=== PATIENT | female | born 1995 | race Caucasian/White ===

== ENCOUNTER 2024-10-28 11:34 | Inpatient (IN) ==
[2024-10-28 12:27] LABS: Hematocrit (blood only) 39.0 % (37.0-47.0); Hemoglobin 12.7 g/dl (12.0-16.0); Immature Granulocytes # (auto) 0.06 K/uL (0.01-0.20); Immature Granulocytes % (auto) 0.4 %; Mean Corpuscular Hemoglobin 29.1 pg (25.0-34.0); Mean Corpuscular Volume 89.4 fL (80.0-100.0); Platelet Count 415 K/uL (130-400); RDW Standard Deviation 43.3 fL (36.4-46.3); Red Blood Count 4.36 M/uL (4.20-5.40); White Blood Count 16.29 K/ul (4.8-10.8)
[2024-10-28 12:45] LABS: Alanine Aminotransferase 16 U/L (7-52); Albumin Globulin Ratio 1.2 (0.9-2); Alkaline Phosphatase 56 U/L (34-104); Anion Gap 4 (3-11); Bilirubin,Total 0.5 mg/dl (0.2-1.0); Blood Urea Nitrogen 10 mg/dl (6-23); Calcium 9.4 mg/dl (8.6-10.3); Carbon Dioxide 26 mmol/L (21-32); Chloride 105 mmol/L (98-107); Globulin 3.5 gm/dl (2.5-4.0); Glucose 105 mg/dl (70-99(Fasting)); Potassium 4.2 mmol/L (3.5-5.1); Sodium 135 mmol/L (136-145); Total Protein 7.7 gm/dl (6.0-8.3)
[2024-10-28 12:52] LABS: Pregnancy Test, Serum Negative (Negative)
[2024-10-28 12:55] LABS: Acetaminophen < 3 ug/ml (10-30); Salicylate < 3.0 mg/dl (3.0-30)
[2024-10-28 13:00] LABS: Thyroid Stimulating Hormone 3.345 uIu/ml (0.300-4.500)
[2024-10-28 14:00] LABS: Appearance Urine Clear (Clear); Bacteria Urine Automated None Seen (None Seen); Cast Urine Automated 0-2 /lpf (0-2); Glucose Urine UA Negative (Negative)
--- NOTE | 2024-10-28 14:15 | Emergency Department Note ---
Impression & Plan Depression, Suicidal ideation ED Provider Note ED Provider Note NAME: LOUISA HOYOS AGE:29 SEX: Female : 1995 ARRIVES VIA: EMS INFORMANT: Patient ED PROVIDER(s): Radha Grayson DO CHIEF COMPLAINT: Mental health evaluation HPI: This is a 29-year-old female who presents to the emergency department for mental health evaluation. Patient referred here from her psychiatrist office. She states she was meeting with her psychiatrist when they had to leave urgently to see another client and another psychiatrist came in. She states that psychiatrist told her she was malingering and she needed to come to the ER more emergently. She states she does sometimes have seizures when she sees her psychiatrist as well as her therapist. She denies any recent change in her medications. She admits to occasional thoughts of suicide with a plan to overdose. No prior suicide attempts. Denies paranoia or hallucinations. PAST MEDICAL HISTORY:See Below PAST SURGICAL HISTORY:See Below FAMILY HISTORY:See Below SOCIAL HISTORY:See Below HOME MEDICATIONS:See Below ALLERGIES:See Below VITALS:See Below PHYSICAL EXAMINATION: GENERAL: alert, well appearing, well nourished, no distress, non-toxic EYE EXAM: normal conjunctiva, PERRL and EOM's grossly intact OROPHARYNX: no exudate, no erythema, lips, buccal mucosa, and tongue normal and mucous membranes are moist NECK: supple, no nuchal rigidity, no adenopathy, non-tender LUNGS: Clear to auscultation. Normal chest wall mechanics, no w/r/r HEART: no murmurs, S1 normal and S2 normal ABDOMEN: abdomen soft, non-tender, normo-active bowel sounds, no masses, no rebound or guarding. SKIN: no rashes, petechiae, orbruising UPPER EXTREMITIES: upper extremities are grossly normal. FROM, nml pulses b/l. LOWER EXTREMITIES: No pitting edema. FROM, nml pulses b/l. NEURO EXAM: Normal sensorium, cranial nerves II-XII grossly intact, normal speech, no facial droop,nogross weakness of arms, no gross weakness of legs. Gross sensation intact. No ataxia. Vital Signs: reviewed and remarkable Differential Diagnosis: mood disorder, suicidal ideation, anxiety, depression, substance abuse, toxidrome, infection, hypoglycemia, electrolyte abnormalities, ICH as well as others were considered. MEDICAL DECISION MAKING: This is a 21-year-old female who presents to the emergency department with concern for depression, suicidal ideation and plan. Patient does follow with outpatient mental providers. Labs and urine collected and sent per protocol and were reassuring. Patient seen and evaluated by case management and is in agreement with plan for inpatient mental health treatment. She was referred to [facility] who did come and evaluate her at bedside. Patient in agreement with plan for admission here. 201 signed by me. Patient hemodynamically stable throughout. Patient was noted to have mild leukocytosis of unclear etiology. Patient denied any concern illness and had no other focal complaints or concerns. Consultation(s): 1829: Patient seen and evaluated by [facility] for inpatient mental health treatment. 201 signed by me. ER Treatment Provided: See below Diagnostics Interpreted By Me: -Laboratory studies: As stated above and show below. Triage Nursing Note Reviewed Prior/Outside Records Reviewed Past Med/Surg History Problem List (Updated 10/28/24 @ 18:36 by Radha Grayson DO) Suicidal ideation (Acute) Depression (Acute) Medical History Bipolar disorder Seizure HTN (hypertension) Social History Smoking Status: Never smoker Preferred Language: Guinean Feels Safe at Home: Yes Gender Identity: Female Allergies Allergies Allergy/AdvReac Type Severity Reaction Status Date / Time minocycline Allergy Unknown on med list Unverified 09/15/24 16:56 Penicillins Allergy Unknown on med list Unverified 09/15/24 16:56 Home Meds Home Medications Medication Instructions Recorded Confirmed atogepant 30 mg tablet (Qulipta) 30 mg PO HS 09/15/24 10/28/24 buspirone 30 mg tablet 30 mg PO BID 09/15/24 10/28/24 clomipramine 75 mg capsule 200 mg PO HS 09/15/24 10/28/24 dextroamphetamine-amphetamine ER 20 mg PO QAM 09/15/24 10/28/24 20 mg 24hr capsule,extend release ferrous sulfate 325 mg (65 mg 325 mg PO .MON,WED,FRI 09/15/24 10/28/24 iron) tablet gabapentin 600 mg tablet 600 mg PO BID 09/15/24 10/28/24 lithium carbonate 300 mg capsule 300 mg PO BID 09/15/24 10/28/24 magnesium 400 mg PO HS 09/15/24 10/28/24 naltrexone 50 mg tablet 50 mg PO DAILY 09/15/24 10/28/24 ondansetron 4 mg disintegrating 4 mg PO Q8H PRN Nausea 09/15/24 10/28/24 tablet prazosin 2 mg capsule 2 mg PO HS 09/15/24 10/28/24 riboflavin (vitamin B2) 400 mg 400 mg PO DAILY 09/15/24 10/28/24 tablet rimegepant 75 mg disintegrating 75 mg PO UD PRN Headache 09/15/24 10/28/24 tablet (Nurtec ODT) trazodone 50 mg tablet 50 - 100 mg PO HS PRN Sleep 09/15/24 10/28/24 Florinef 0.2 mg PO DAILY 10/28/24 10/28/24 diazepam See Rx Instructions .Route 10/28/24 10/28/24 .COMPLEX PRN Focus meloxicam 7.5 mg PO BID 10/28/24 10/28/24 Results & Data (ED) Vital Signs Vital Signs - 24 hr 10/28/24 11:43 10/28/24 15:43 10/28/24 17:42 Temperature 36.6 C Temperature Source Oral Pulse Rate 107 H Pulse Rate [Finger] 90 90 Respiratory Rate 18 16 16 Respiratory Effort / Characteristics Non-Labored Spontaneous Respiratory Depth Normal Respiratory Pattern Regular Blood Pressure 130/86 Blood Pressure [Left Arm] 112/73 109/75 Blood Pressure Mean 100 Blood Pressure Mean [Left Arm] 86 86 Blood Pressure Position [Left Arm] Semi-fowlers Semi-fowlers Pulse Oximetry 100 100 98 Oxygen Delivery Method Room Air Room Air Room Air Sepsis Recent Fever Within 48 Hours No Sepsis New/Unexplained Change in Mental Status N/A Sepsis Action Taken by Nursing No Action Required Laboratory Data 10/28/24 12:07 10/28/24 12:07 Lab Results 10/28/24 10/28/24 10/28/24 Range/Units 12:07 13:40 Unknown WBC 16.29 H (4.8-10.8) K/ul RBC 4.36 (4.20-5.40) M/uL Hgb 12.7 (12.0-16.0) g/dl Hct 39.0 (37.0-47.0) % MCV 89.4 (80.0-100.0) fL MCH 29.1 (25.0-34.0) pg MCHC 32.6 (32.0-36.0) g/dL RDW Std Deviation 43.3 (36.4-46.3) fL RDW Coeff of Dahlia 13.2 (11.5-14.5) % Plt Count 415 H (130-400) K/uL MPV 8.3 L (9.4-12.4) fL Immature Gran % (Auto) 0.4 % Neut % (Auto) 87.7 % Lymph % (Auto) 6.5 % [place] % (Auto) 4.3 % Eos % (Auto) 0.5 % Baso % (Auto) 0.6 % Neut # (Auto) 14.30 H (1.40-6.50) K/uL Lymph # (Auto) 1.06 L (1.20-3.40) K/uL [place] # (Auto) 0.70 H (0.11-0.59) K/uL Eos # (Auto) 0.08 (0.00-0.50) K/uL Baso # (Auto) 0.09 (0.00-0.20) K/uL Immature Gran # (Auto) 0.06 (0.01-0.20) K/uL Sodium 135 L (136-145) mmol/L Potassium 4.2 (3.5-5.1) mmol/L Chloride 105 (98-107) mmol/L Carbon Dioxide 26 (21-32) mmol/L Anion Gap 4 (3-11) BUN 10 (6-23) mg/dl Creatinine 0.67 (0.6-1.2) mg/dl Est Cr Clr Drug Dosing Not Reportable eGFR 121.26 BUN/Creatinine Ratio 14.9 (10-20) Glucose 105 H (70-99(Fasting)) mg/dl Calcium 9.4 (8.6-10.3) mg/dl Total Bilirubin 0.5 (0.2-1.0) mg/dl AST 17 (13-39) U/L ALT 16 (7-52) U/L Alkaline Phosphatase 56 (34-104) U/L Total Protein 7.7 (6.0-8.3) gm/dl Albumin 4.2 (3.4-5.0) gm/dl Globulin 3.5 (2.5-4.0) gm/dl Albumin/Globulin Ratio 1.2 (0.9-2) TSH 3.345 (0.300-4.500) uIu/ml HCG, Qual Negative (Negative) Urine Color Yellow Urine Appearance Clear (Clear) Urine pH 7.0 (4.5-7.5) Ur Specific [place] 1.012 (1.000-1.030) Urine Protein Negative (Negative) Urine Glucose (UA) Negative (Negative) Urine Ketones Trace H (Negative) Urine Blood Negative (Negative) Urine Nitrite Negative (Negative) Urine Bilirubin Negative (Negative) Urine Urobilinogen Negative (Negative) Ur Leukocyte Esterase Trace H (Negative) Urine WBC (Auto) 6-10 H (0-5) /hpf Urine RBC (Auto) 3-5 H (0-2) /hpf U Hyaline Cast (Auto) 0-2 (0-2) /lpf U Epithel Cells (Auto) 6-10 H (0-2) /hpf Urine Bacteria (Auto) None Seen (None Seen) Urine Comment Salicylates < 3.0 L (3.0-30) mg/dl Urine Opiates Screen Neg (Neg) Ur Methadone, Qual Neg (Neg) Urine Fentanyl Screen Neg (Neg) Acetaminophen < 3 L (10-30) ug/ml Urine Barbiturates Neg (Neg) Ur Phencyclidine (PCP) Neg (Neg) U Amphetamin/Meth Scrn Pos H (Neg) MDMA (Ecstasy) Screen Neg (Neg) U Benzodiazepines Scrn Neg (Neg) [place] 0.2 L (0.6-1.2) mmol/L Ur Cocaine Metabolite Neg (Neg) U Marijuana (THC) Screen Neg (Neg) Ethyl Alcohol mg/dL < 10.0 (<10.0) mg/dl SARS-CoV-2, RNA, NAAT NEGATIVE (NEGATIVE) Administered Medications Discontinued Medications Acetaminophen (Acetaminophen 500 Mg Tab) 1,000 mg PO NOW STA Stop: 10/28/24 14:32 Last Admin: 10/28/24 14:35 Dose: 1,000 mg Documented By: JEAN CARLOS Discharge Plan Visit Data Chief Complaint: Mental Health Evaluation Stated Complaint: [facility] ED Provider: Radha Grayson Discharge Problem: Depression, Suicidal ideation Patient Disposition: Still a Patient Condition: Good Forms Stand Alone Forms: My [facility], Suicide Prevention Resources Prescriptions Prescriptions: No Action Florinef 0.2 mg tablet 0.2 mg PO DAILY diazepam 2 mg tablet See Rx Instructions .ROUTE .COMPLEX PRN (Reason: Focus) Rx Instructions: 2 mg orally as needed ;Can be taken up to twice a day. meloxicam 7.5 mg tablet 7.5 mg PO BID gabapentin 600 mg tablet 600 mg PO BID trazodone 50 mg tablet 50 - 100 mg PO HS PRN (Reason: Sleep) clomipramine 75 mg capsule 200 mg PO HS naltrexone 50 mg tablet 50 mg PO DAILY dextroamphetamine-amphetamine 20 mg capsule,extended release 24hr 20 mg PO QAM lithium carbonate 300 mg capsule 300 mg PO BID buspirone 30 mg tablet 30 mg PO BID ferrous sulfate 325 mg (65 mg iron) Tablet 325 mg PO .MON,WED,FRI ondansetron 4 mg tablet,disintegrating 4 mg PO Q8H PRN (Reason: Nausea) prazosin 2 mg capsule 2 mg PO HS riboflavin (vitamin B2) 400 mg Tablet 400 mg PO DAILY Nurtec ODT 75 mg tablet,disintegrating 75 mg PO UD PRN (Reason: Headache) Rx Instructions: one tab at beginning of a headache, can take up to two days a week Qulipta 30 mg tablet 30 mg PO HS magnesium 400 mg PO HS Referrals Referrals: Michelle Tan PA-C [Primary Care Provider] -
[2024-10-28 14:27] LABS: Amphetamines+Metham, Urine Pos (Neg); MDMA (Ecstacy), Urine Neg (Neg); Marijuana, Urine Neg (Neg)
[2024-10-28] MEDS: ACETAMINOPHEN 500 MG TAB PO STA (14:35)
[2024-10-28] MEDS ORDERED: ALUMINUM/MAGNESIUM SUSP 30 ML UDC PO PRN ×2 (18:46→21:26)
[2024-10-28] MEDS ORDERED: MAGNESIUM HYDROXIDE SUSP 30 ML UDC PO PRN (21:26)
[2024-10-28] MEDS ORDERED: SODIUM CHLORIDE 0.65% NA SOLN 45 ML (OCEAN) PRN (21:26)
[2024-10-28] MEDS ORDERED: BISMUTH SUBSALICYLATE 262 MG CHEW PO PRN (21:26)
[2024-10-29] MEDS ORDERED: ONDANSETRON 4 MG OD TAB PO PRN (10:55)
[2024-10-29] MEDS: FLUDROCORTISONE ACETATE 0.1 MG TAB PO SCH (11:45)
[2024-10-29] MEDS: busPIRone 15 MG TAB PO SCH (11:45)
[2024-10-29] MEDS: NALTREXONE HCL 50 MG TAB PO SCH (11:46)
[2024-10-29] MEDS: LITHIUM CARBONATE 300 MG TAB PO SCH (11:46)
[2024-10-29] MEDS: GABAPENTIN 600 MG TAB PO SCH (11:46)
[2024-10-29] MEDS: FERROUS SULFATE 325 MG TAB PO SCH (11:46)
--- NOTE | 2024-10-29 14:00 | History & Physical ---
Date of Service October 29, 2024 Impression / Recommendations Impression Patient is currently presenting with symptoms consistent with major depressive disorder, recurrent episode with mixed features. Patient was recently switched from Zoloft to clomipramine to manage her depression. She did not believe clomipramine has been effective and somewhat affects when on Zoloft. Patient has history of chronic SI without intent/plan. Currently this delaying multiple risk factors including hopelessness, poor use of unscheduled support when in crisis, and effective medication management, stressors (returned to work this past Friday). Patient is agreeable to discontinuing imipramine and return to Zoloft to return her depression is previously more stable baseline. Overall I spent a total of 75 minutes for this admission including review of chart records, review of labwork, direct evaluation of the patient, counseling the patient, ordering medication, risk assessment, discussion with the psychiatric liason RN and documentation in the electronic health record. (1) Major depressive disorder, recurrent episode with mixed features: (2) Suicidal ideation: Plan The patient was admitted to the [facility] ([facility]) on q15 min checks (behavioral with suicide precautions) for safety. The patient will participate in group, recreational, and milieu therapies and will be offered additional individual and family sessions as clinically appropriate. Discontinue Clomipramine Restart Zoloft at 50 mg PO QAM Continue remaining home medications (excluding stimulant) Suicide Risk Level Suicide Risk Level Comments: Moderate (q15 min suicide checks) (panic attacks with depression, hopelessness and SI and isolative behavior/does not seek unscheduled support) Risk Factors Assessment Do You Have Access To A Gun?: Yes (mother owns firearms but they are locked, patient does not have the bland) Protective Factors Assessment Employed: Yes Psychiatric History Identifying Data LOUISA HOYOS is a 29 -year-old single female, whos employed, living with her mother, has no children, and has never been . She has a past psychiatric history of depression and anxiety with no prior psychiatric commitments and no history of suicide attempts. Family history of depression and PTSD in her father and family history of suicide attempt by a paternal cousin. Chief Complaint depression and anxiety History of Present Illness Per the patient she presented to the ED after endorsing suicidal ideations. During a scheduled appointment with her psychiatrist. "But I didnt have any intent," she stated. After endorsing SI, the patient was asked to sign a list of conditions in order to continue seeing her psychiatrist. The patient started having a panic attack with racing thoughts of, Why does everyone always give up on me. The patient feels her psychiatrist overreacted sending her to the emergency department. Upon evaluation patient presented as calm and cooperative with a affect and limited range, and soft, muffled and often unintelligible speech. Patient reported a long history of undisclosed anxiety beginning in middle school, along with depression, feelings of worthlessness on and off throughout [her] life," and chronic suicidal ideations experienced throughout middle school. She did not seek support until the age of 20 when her depressive and anxious symptoms hindered her academic performance. Patient reported a pattern of only disclosing distress during routine encounters noting that she has never sought unscheduled support wanted crisis. The patient reports experiencing worsening depression and anxiety over the past year after being let go from her job in August of 2023 and then subsequently losing her long-time therapist. HR sent an email saying I was too burdensome to employ, she stated. Prior to this, the patient believes her mental health was improving she was performing well and worked with, in therapy and responded well to medication. Following that stressor leading the patient experienced worsening depression associated with insomnia, poor appetite, isolated behavior, poor concentration, low energy, excessive guilt, worth prediabetes lessens, hopelessness (more p rominent in the past year), and chronic suicidal ideations. Her anxiety has been associated with racing thoughts, restlessness, negative thought patterns and panic attacks (a couple times a weeksometimes its just out of nowhere lasting about 10-30 minutes). Regarding triggers she reported experiencing general anxiety throughout the day stating, I have a lot of anxiety with leaving my home. Patient reports chronic suicidal ideation stating, "the thoughts are always kind of there in the back of my head. She reports never having had a "set plan" but stated "I know ways to do it." Patient admits to history of developing intent noting that her last instance of suicidal intent occurred February 2024. The patient also reported PTSD symptoms regarding physical and emotional trauma, that include intrusive thoughts, nightmares, flashbacks, and avoiding being alone with men. Patient reported having no current/prior history of marin including insomnia with preserved energy, grandiosity, hyperactivity, impulsivity (hypersexuality, increased spending), and pressured speech. She also reported no history of psychosis denying current or prior auditory/visual hallucinations, ideas of reference and paranoia. Of note, patient reports that Zoloft was previously effective in managing her depression but recently discontinued and started on clomipramine. Patient does not feel clomipramine has been effective. Patient also reports naltrexone to be effective in subduing urges to self-harm. Past Psychiatric History Current Psychiatric Diagnosis: Patient reported she is diagnosd with Anxiety, Depression, and PTSD Do You Have Access To A Gun?: Yes (mother owns firearms but they are locked, patient does not have the bland) History of Previous Suicide Attempt: No Allergies Allergy/AdvReac Type Severity Reaction Status Date / Time minocycline Allergy Unknown on med list Unverified 09/15/24 16:56 Penicillins Allergy Unknown on med list Unverified 09/15/24 16:56 lamotrigine [From Lamictal] AdvReac Intermediate Rash Unverified 10/29/24 00:08 Home Medications Medication Instructions Recorded Confirmed Type atogepant 30 mg tablet (Qulipta) 30 mg PO HS 09/15/24 10/28/24 History buspirone 30 mg tablet 30 mg PO BID 09/15/24 10/28/24 History clomipramine 75 mg capsule 200 mg PO HS 09/15/24 10/29/24 History dextroamphetamine-amphetamine ER 20 mg PO QAM 09/15/24 10/28/24 History 20 mg 24hr capsule,extend release ferrous sulfate 325 mg (65 mg 325 mg PO .MON,WED,Fri09/15/24 10/28/24 History iron) tablet gabapentin 600 mg tablet 600 mg PO BID 09/15/24 10/28/24 History lithium carbonate 300 mg capsule 300 mg PO BID 09/15/24 10/28/24 History magnesium 400 mg PO HS 09/15/24 10/28/24 History naltrexone 50 mg tablet 50 mg PO DAILY 09/15/24 10/28/24 History ondansetron 4 mg disintegrating 4 mg PO Q8H PRN Nausea 09/15/24 10/28/24 History tablet riboflavin (vitamin B2) 400 mg 400 mg PO DAILY 09/15/24 10/28/24 History tablet rimegepant 75 mg disintegrating 75 mg PO UD PRN Headache 09/15/24 10/28/24 History tablet (Nurtec ODT) trazodone 50 mg tablet 50 - 100 mg PO HS PRN Sleep 09/15/24 10/28/24 History Florinef 0.2 mg PO DAILY 10/28/24 10/28/24 History diazepam See Rx Instructions .Route 10/28/24 10/28/24 History .COMPLEX PRN Focus meloxicam 7.5 mg PO BID 10/28/24 10/28/24 History Family History Family History of: Depression and Suicide Completion Family Mental Health History Comment: Depression and PTSD - father Father's cousin completed suicide Alcohol History Hx of Alcohol Use Over the Past 12 Months: No (1 drink approx. 4-5x per year) AUDIT Total Score: 1 Smoking Use Have You Smoked or Used Tobacco Products in the Last 30 Days: No Smoking Status: Never smoker Substance History Hx of Prescription Med Misuse Over the Past 12 Months: No Hx of Over the Counter Med Misuse Over the Past 12 Months: No Hx of Inhalent Misuse Over the Past 12 Months: No Hx of Organic Substance Use Over the Past 12 Months: No Hx of Illegal Substances/Street Drug Use Over Past 12 Months: No Problems as a Result of Past Substance Use: None Identified Personal History Living Arrangements: Home Highest Grade Completed: College Highest Grade Completed Comment: Bachelor's degree in Psychology Marital Status: Single Number Of Children: 0 Beliefs That Will Affect Care: None Patient History Medical History Bipolar disorder Seizure HTN (hypertension) Social History Smoking Status: Never smoker Preferred Language: French Communication Ability: Effective Director Of Fundraising Required: No Beliefs That Will Affect Care: None Feels Safe at Home: Yes Gender Identity: Female Assistive Devices: Glasses Physical Exam Psychiatric: Orientation: oriented x 3 Apperance: appropriately dressed and appropriately groomed Eye Contact: + poor eye contact Motor Behavior: + psychomotor agitation intermittently tapping left foot; fidgeting with hands soft; muffled and frequently unintelligible speech; +latency of speech limited range; fluid Mood: + depressed mood and + anxious mood Thought Process: goal directed thought process Thought Content: + hopelessness, + worthlessness and + self deprecation Suicidal Thoughts: denies suicidal thoughts and denies suicidal plan (reports having no set plan, but being aware of different methods); + reports suicidal intent Homicidal Thoughts: + reports homicidal thoughts, + reports homicidal plan and + reports homicidal intent Hallucinations: no auditory hallucinations and no visual hallucinations Cognition: remote memory grossly intact; + attention not intact immediate recall intact;; delayed recall impaired : recalled 1/3 independently; recalled 1/3 with cue; could not recall 1/3 with cue or mulple choices Insight: + fair insight Judgment: + fair judgement Vital Signs (Past 24 Hours): Last Vital Signs Temp 36.9 C 10/28/24 20:40 Pulse 97 H 10/28/24 20:40 Resp 20 10/28/24 20:40 BP 132/87 10/28/24 20:40 Pulse Ox 99 10/28/24 20:40 O2 Del Method Room Air 10/28/24 20:40 Results & Data ([facility]) Laboratory Results Laboratory Results - last 24 hr 10/28/24 10/28/24 10/28/24 12:07 13:40 Unknown Urine Color Yellow Urine Appearance Clear Urine pH 7.0 Ur Specific [place] 1.012 Urine Protein Negative Urine Glucose (UA) Negative Urine Ketones Trace H Urine Blood Negative Urine Nitrite Negative Urine Bilirubin Negative Urine Urobilinogen Negative Ur Leukocyte Esterase Trace H Urine WBC (Auto) 6-10 H Urine RBC (Auto) 3-5 H U Hyaline Cast (Auto) 0-2 U Epithel Cells (Auto) 6-10 H Urine Bacteria (Auto) None Seen Urine Comment Urine Opiates Screen Neg Ur Methadone, Qual Neg Urine Fentanyl Screen Neg Urine Barbiturates Neg Ur Phencyclidine (PCP) Neg U Amphetamines Confirm Pending U Amphetamin/Meth Scrn Pos H U Methamphetamin Confrm Pending MDMA (Ecstasy) Screen Neg U Benzodiazepines Scrn Neg [place] 0.2 L Ur Cocaine Metabolite Neg U Marijuana (THC) Screen Neg Drug Screen Comment Pending SARS-CoV-2, RNA, NAAT NEGATIVE Current Inpatient Medications Current Inpatient Medications: Current Inpatient Medications Acetaminophen (Acetaminophen 325 Mg Tab) 650 mg PO Q4H PRN PRN Reason: Headache or Minor Fever Stop: 11/27/24 21:25 Al Hydrox/Mg Hydrox/Simethicone (Aluminum/Magnesium Susp 30 Ml Udc) 30 ml PO Q4H PRN PRN Reason: GI Upset Stop: 11/27/24 21:25 Atogepant (Atogepant 30 Mg Tab) 30 mg PO Q24H [facility] Stop: 11/28/24 21:59 Bismuth Subsalicylate (Bismuth Subsalicylate 262 Mg Chew) 2 tab PO Q30M PRN PRN Reason: Loose Stool/Diarrhea Stop: 11/27/24 21:25 Buspirone HCl (Buspirone 15 Mg Tab) 30 mg PO BID EFREN Stop: 11/28/24 10:59 Last Admin: 10/29/24 11:45 Dose: 30 mg Diazepam (Diazepam 2 Mg Tablet) 2 mg PO BID PRN PRN Reason: Anxiety Stop: 11/28/24 10:53 Ferrous Sulfate (Ferrous Sulfate 325 Mg Tab) 325 mg PO [id number] [facility] Stop: 11/28/24 11:14 Last Admin: 10/29/24 11:46 Dose: 325 mg Fludrocortisone Acetate (Fludrocortisone Acetate 0.1 Mg Tab) 0.2 mg PO DAILY [facility] Stop: 11/28/24 10:59 Last Admin: 10/29/24 11:45 Dose: 0.2 mg Gabapentin (Gabapentin 600 Mg Tab) 600 mg PO BID EFREN Stop: 11/28/24 10:59 Last Admin: 10/29/24 11:46 Dose: 600 mg Hydroxyzine HCl (Hydroxyzine Hcl 25 Mg Tab) 50 mg PO HSZ PRN PRN Reason: Insomnia Stop: 11/27/24 21:25 Hydroxyzine HCl (Hydroxyzine Hcl 25 Mg Tab) 25 mg PO Q4H PRN PRN Reason: Anxiety Stop: 11/27/24 21:25 [place] Carbonate ([place] Carbonate 300 Mg Tab) 300 mg PO BID [facility] Stop: 11/28/24 10:59 Last Admin: 10/29/24 11:46 Dose: 300 mg Magnesium Hydroxide (Magnesium Hydroxide Susp 30 Ml Udc) 30 ml PO DAILY PRN PRN Reason: Constipation Stop: 11/27/24 21:25 Magnesium Oxide (Magnesium Oxide 400 Mg Tab) 400 mg PO HS EFREN Stop: 11/28/24 21:59 Meloxicam (Meloxicam 7.5 Mg Tab) 7.5 mg PO BID [facility] Stop: 11/28/24 20:59 Miscellaneous (Order Awaiting Action Clomipramine 75 Mg Capsule) 1 each N/A QS EFREN Stop: 11/28/24 15:59 Miscellaneous (Order Awaiting Action (Riboflavin (Vitamin B2) 400 Mg Tablet) 1 each N/A QS EFREN Stop: 11/28/24 15:59 Naltrexone HCl (Naltrexone Hcl 50 Mg Tab) 50 mg PO DAILY EFREN Stop: 11/28/24 10:59 Last Admin: 10/29/24 11:46 Dose: 50 mg Ondansetron HCl (Ondansetron 4 Mg Od Tab) 4 mg PO Q8H PRN PRN Reason: Nausea Stop: 11/28/24 10:54 Sertraline HCl (Sertraline Hcl 50 Mg Tablet) 50 mg PO QAM EFREN Stop: 11/28/24 13:59 Sodium Chloride (Sodium Chloride 0.65% Na Soln 45 Ml ([place])) 1 - 2 sprays NA PRN PRN PRN Reason: Nasal Dryness/Congestion Stop: 11/27/24 21:25 Trazodone HCl (Trazodone Hcl 50 Mg Tab) 50 - 100 mg PO HS PRN PRN Reason: Sleep Stop: 11/28/24 10:54
[2024-10-29] MEDS: RIMEGEPANT SULFATE 75 MG OD TAB PO PRN (14:09)
[2024-10-29] MEDS: SERTRALINE HCL 50 MG TABLET PO SCH (14:17)
[2024-10-29] MEDS: MELOXICAM 7.5 MG TAB PO SCH (20:44)
[2024-10-29] MEDS: MAGNESIUM OXIDE 400 MG TAB PO SCH (20:44)
[2024-10-29] MEDS: ATOGEPANT 30 MG PO SCH (20:45)
[2024-10-29] MEDS: PRAZOSIN HCL 1 MG CAP PO SCH (21:53)
--- NOTE | 2024-10-30 09:24 | Psychiatric Progress Note ---
Date of Service October 30, 2024 Impression / Recommendations Impression Diagnostically consistent with major depressive disorder recurrent vs persistent depressive disorder as well as cluster B traits vs BPD and social anxiety with history of nonepileptic seizures/functional neurological disorder and likely trauma and other stressor disorder vs PTSD per history. A: Ongoing self-harm, chronic SI but passive and help seeking/help rejecting patterns of behavior. Suspect BPD significantly contributes to mood symptoms and chronic SI and self-harm and could be due to genetics (she rpeorts family with similar BPD symptoms including anger outbursts) vs secondary to past trauma. Also significant social anxiety. Discussed medication treatment options. She consents to increasing Eunice and continuing her other medications including prazosin and sertraline. Reviewed side effects including but not limited to low BP/syncope, GI symptoms, educated on risks of dehydration, renal, thyroid, cardiac, drug interactions (NSAIDs, ACEIs, angiotensin receptor antagonists, risks) with Eunice. Provided psychoeducation about BPD/trauma/cluster B traits and discussed DBT and recommended DBT resources. Also discussed how stress and anxiety can manifest physically via neurological symptoms in functional neurological disorders. MNPR given extreme social anxiety and trauma history Overall, I spent a total of 50 minutes on this case including meeting with the patient, reviewing the chart, nursing report, multidisciplinary team meeting, orders, and documentation. (1) Major depressive disorder, recurrent episode with mixed features: (2) Suicidal ideation: (3) Intentional self-harm: (4) Social anxiety disorder: (5) Functional neurological symptom disorder with attacks or seizures: Plan 10/30/2024: -Increase Eunice from 300mg BID to 300mg qAM and 600mg HS 10/29/2024: The patient was admitted to the [facility] ([facility] mental health unit) on q15 min checks (behavioral with suicide precautions) for safety. The patient will participate in group, recreational, and milieu therapies and will be offered additional individual and family sessions as clinically appropriate. Discontinue Clomipramine Restart Zoloft at 50 mg PO QAM Continue remaining home medications (excluding stimulant) Inventory Assets Strengths: supportive relationships, willing to get treatment Needs: safety and stabilization, medication adjustment, additional coping skills, exploration of options for increased outpatient services Suicide Risk Level Suicide Risk Level: Moderate (q15 min suicide checks) (panic attacks with depression, and chronic passive SI but feels safe and seeks out support and responds to nursing reassurance) Risk Factors Assessment Do You Have Access To A Gun?: Yes (mother owns firearms but they are locked, patient does not have the bland) Protective Factors Assessment Employed: Yes Interval History Identifying Information LOUISA HOYOS is a 29 -year-old single female, whos employed, living with her mother with a past psychiatric history of depression and anxiety with no prior psychiatric hospitalizations and no history of suicide attempts admitted on a 201 voluntary commitment for increased depression and SI. Chief Complaint "Ok". Review of Systems Sleep Information Total Hours of Sleep: 7.75 Sleep Comments: Got up once to eat cereal. Meal Information Percent Meal Consumed - Breakfast: 0 Percent Meal Consumed - Dinner: 50 Subjective Subjective Patient was seen & assessed and interval progress reviewed with nursing and so britany work. Attended group last night and rated her mood as "1" and "scared". Was upset that her prazosin wasn't ordered last night and started to self-harm via head banging and then utilized the quiet room. This clinician was contacted by nursing and prazosin, which she was taking prior to admission, was ordered. Got a dose of prn Valium yesterday. She slept overnight. Today she reports passive SI of thinking she would be better off but denies any active thoughts and reports this is consistent with her long-term chronic suicidal thoughts. She remains focused on desire for discharge. She denies any issues or concerns that are not being treated. Discussed her depression and she is agreeable to increasing her Eunice. Denies any medication side effects. Completed Carrie BPD screening, result consistent with possible BPD. Provided psychoeducation and discussed DBT resources. She declined offer for me to provide her with handout on free DBT resource. After meeting with me she was tearful and tried to self-harm by head-banging. Recieved prn Valium. Physical Exam Psychiatric Orientation: oriented x 3 Apperance: appropriately dressed and appropriately groomed Eye Contact: + fair eye contact (looks down frequently) Motor Behavior: steady gait and station and no abnormal motor movements Speech: + abnormal rate/rhythm/volume of speech (soft) Affect: + constricted affect Mood: + depressed mood and + anxious mood Thought Process: goal directed thought process Thought Content: reality based without delusions Suicidal Thoughts: denies suicidal plan and denies suicidal intent; + reports suicidal thoughts (passive chronic SI) Homicidal Thoughts: denies homicidal thoughts, denies homicidal plan and denies homicidal intent Hallucinations: no auditory hallucinations and no visual hallucinations Cognition: recent memory grossly intact, remote memory grossly intact, attention grossly intact and language grossly intact Insight: + fair insight Judgment: + limited judgement Vital Signs (Past 24 Hours) Last Vital Signs Temp 36.4 C L 10/30/24 06:29 Pulse 89 10/30/24 06:29 Resp 18 10/30/24 06:29 BP 111/74 10/30/24 06:29 Pulse Ox 99 10/30/24 06:29 O2 Del Method Room Air 10/30/24 06:29 Results & Data ([facility]) Laboratory Results Laboratory Results - last 24 hr 10/30/24 07:57 Eunice Pending Current Inpatient Medications Current Inpatient Medications: Current Inpatient Medications Acetaminophen (Acetaminophen 325 Mg Tab) 650 mg PO Q4H PRN PRN Reason: Headache or Minor Fever Stop: 11/27/24 21:25 Al Hydrox/Mg Hydrox/Simethicone (Aluminum/Magnesium Susp 30 Ml Udc) 30 ml PO Q4H PRN PRN Reason: GI Upset Stop: 11/27/24 21:25 Atogepant (Atogepant 30 Mg Tab) 30 mg PO Q24H EFREN Stop: 11/28/24 21:59 Last Admin: 10/29/24 20:45 Dose: 30 mg Bismuth Subsalicylate (Bismuth Subsalicylate 262 Mg Chew) 2 tab PO Q30M PRN PRN Reason: Loose Stool/Diarrhea Stop: 11/27/24 21:25 Buspirone HCl (Buspirone 15 Mg Tab) 30 mg PO BID [facility] Stop: 11/28/24 10:59 Last Admin: 10/29/24 20:44 Dose: 30 mg Diazepam (Diazepam 2 Mg Tablet) 2 mg PO BID PRN PRN Reason: Anxiety Stop: 11/28/24 10:53 Last Admin: 10/29/24 20:51 Dose: 2 mg Ferrous Sulfate (Ferrous Sulfate 325 Mg Tab) 325 mg PO MoWeFr@0900 [facility] Stop: 11/28/24 11:14 Last Admin: 10/29/24 11:46 Dose: 325 mg Fludrocortisone Acetate (Fludrocortisone Acetate 0.1 Mg Tab) 0.2 mg PO DAILY [facility] Stop: 11/28/24 10:59 Last Admin: 10/29/24 11:45 Dose: 0.2 mg Gabapentin (Gabapentin 600 Mg Tab) 600 mg PO BID [facility] Stop: 11/28/24 10:59 Last Admin: 10/29/24 20:44 Dose: 600 mg Hydroxyzine HCl (Hydroxyzine Hcl 25 Mg Tab) 50 mg PO HSZ PRN PRN Reason: Insomnia Stop: 11/27/24 21:25 Hydroxyzine HCl (Hydroxyzine Hcl 25 Mg Tab) 25 mg PO Q4H PRN PRN Reason: Anxiety Stop: 11/27/24 21:25 Eunice Carbonate (Eunice Carbonate 300 Mg Tab) 300 mg PO BID [facility] Stop: 11/28/24 10:59 Last Admin: 10/29/24 20:44 Dose: 300 mg Magnesium Hydroxide (Magnesium Hydroxide Susp 30 Ml Udc) 30 ml PO DAILY PRN PRN Reason: Constipation Stop: 11/27/24 21:25 Magnesium Oxide (Magnesium Oxide 400 Mg Tab) 400 mg PO HS [facility]FR[facility] Stop: 11/28/24 21:59 Last Admin: 10/29/24 20:44 Dose: 400 mg Meloxicam (Meloxicam 7.5 Mg Tab) 7.5 mg PO BID [facility] Stop: 11/28/24 20:59 Last Admin: 10/29/24 20:44 Dose: 7.5 mg Miscellaneous (Order Awaiting Action (Riboflavin (Vitamin B2) 400 Mg Tablet) 1 each N/A QS [facility]EN Stop: 11/28/24 15:59 Last Admin: 10/30/24 02:08 Dose: Not Given Naltrexone HCl (Naltrexone Hcl 50 Mg Tab) 50 mg PO DAILY [facility] Stop: 11/28/24 10:59 Last Admin: 10/29/24 11:46 Dose: 50 mg Ondansetron HCl (Ondansetron 4 Mg Od Tab) 4 mg PO Q8H PRN PRN Reason: Nausea Stop: 11/28/24 10:54 Prazosin HCl (Prazosin Hcl 1 Mg Cap) 2 mg PO HS EFREN Stop: 11/28/24 21:59 Last Admin: 10/29/24 21:53 Dose: 2 mg Sertraline HCl (Sertraline Hcl 50 Mg Tablet) 50 mg PO QAM [facility] Stop: 11/28/24 13:59 Last Admin: 10/29/24 14:17 Dose: 50 mg Sodium Chloride (Sodium Chloride 0.65% Na Soln 45 Ml ([place])) 1 - 2 sprays NA PRN PRN PRN Reason: Nasal Dryness/Congestion Stop: 11/27/24 21:25 Trazodone HCl (Trazodone Hcl 50 Mg Tab) 50 - 100 mg PO HS PRN PRN Reason: Sleep Stop: 11/28/24 10:54 Last Admin: 10/29/24 20:48 Dose: 50 mg Mental Health & Subst Abuse Tx Psychiatrist Name of Psychiatrist: Hanna Deluca (In person) Psychiatrist's Date Of Appointment With Psychiatric Provider: 11/19/24 Time of Appointment with Psychiatrist: 8:20AM Psychiatric Appointment Comment: [address] [facility] [address], [place] [address] Therapist Name of Therapist: Guerda casas [facility] [place] Therapist's Date of Therapist Appointment: 11/05/24 Time of Therapist Appointment: 2PM Therapy Appointment Comment: [address], [place] [address] Manager Msw Name of Manager Msw: N/A Post Discharge Appointments Primary Care Physician Name Of Family Doctor/PCP: Michelle Lawrence Primary Care Provider Appointment Comment: [address] [place] [address], [place] [address] Neurologist Name of Neurologist: Bethany Gavin - Neurologist at [facility] Contact Information Discharge Discharge Address: [address] [place] [address] [place] [id number]
[2024-10-30] MEDS: LITHIUM CARBONATE 300 MG TAB PO SCH (21:25)
[2024-10-31] MEDS: LITHIUM CARBONATE 300 MG TAB PO SCH (08:48)
[2024-10-31] MEDS: ACETAMINOPHEN 325 MG TAB PO PRN (09:23)
[2024-10-31] MEDS ORDERED: LORazepam 0.5 MG TAB PO PRN (09:48)
--- NOTE | 2024-10-31 14:48 | Psychiatric Progress Note ---
Date of Service October 31, 2024 Impression / Recommendations Impression Diagnostically consistent with major depressive disorder recurrent vs persistent depressive disorder as well as cluster B traits vs BPD and social anxiety with history of nonepileptic seizures/functional neurological disorder and likely trauma and other stressor disorder vs PTSD per history. A: Ongoing self-harm urges but willing to try some coping skills today, chronic SI but passive. She is future-oriented about seeing her dogs and wants to leave tomorrow before her 72 hour notice expires. Seems that work and new change related to this has caused some increased anxiety and in turn increased self- harm thoughts. She remains help seeking/help rejecting regarding DBT and declines [facility] IOP despite strong recommendation for this. She was also provided with ongoing psychoeducation about functional neurologic disorder and non-epileptic seizures and consideration for outpatient FND clinic which she'll consider. She consents to trial of doxazosin in exchange for prazosin for longer high-life to help with nightmares and increasing sertraline. Reviewed importance of following up with [place] after discharge for [place] level, ideally in 7 days. Reviewed side effects including but not limited to: low BP/dizziness/syncope with doxazosin, abuse potential/confusion/not operating machinery or driving while using Valium and GI symptoms/ALVARADO with sertraline. MNPR given extreme social anxiety and trauma history Overall, I spent a total of 50 minutes on this case including meeting with the patient, reviewing the chart, nursing report, multidisciplinary team meeting, orders, and documentation. (1) Major depressive disorder, recurrent episode with mixed features: (2) Suicidal ideation: (3) Intentional self-harm: (4) Social anxiety disorder: (5) Functional neurological symptom disorder with attacks or seizures: Plan 10/31/2024: -Increase sertraline to 100mg daily -Discontinue prazosin -Start doxazosin 2mg HS 10/30/2024: -Increase [place] from 300mg BID to 300mg qAM and 600mg HS 10/29/2024: The patient was admitted to the [facility] ([facility] mental [facility] unit) on q15 min checks (behavioral with suicide precautions) for safety. The patient will participate in group, recreational, and milieu therapies and will be offered additional individual and family sessions as clinically appropriate. Discontinue Clomipramine Restart Zoloft at 50 mg PO QAM Continue remaining home medications (excluding stimulant) Inventory Assets Strengths: supportive relationships, willing to get treatment Needs: safety and stabilization, medication adjustment, additional coping skills, explo ration of options for increased outpatient services Suicide Risk Level Suicide Risk Level: Moderate (q15 min suicide checks) (panic attacks with depression, and chronic passive SI but feels safe and seeks out support and responds to nursing reassurance) Risk Factors Assessment Do You Have Access To A Gun?: Yes (mother owns firearms but they are locked, patient does not have the bland) Protective Factors Assessment Employed: Yes Interval History Identifying Information LOUISA HOYOS is a 29 -year-old single female, whos employed, living with her mother with a past psychiatric history of depression and anxiety with no prior psychiatric hospitalizations and no history of suicide attempts admitted on a 201 voluntary commitment for increased depression and SI. Chief Complaint "Tired". Review of Systems Sleep Information Total Hours of Sleep: 6.5 Sleep Comments: Meal Information Percent Meal Consumed - Breakfast: 50 Percent Meal Consumed - Lunch: 75 Percent Meal Consumed - Dinner: 75 Nutrition Comment: Subjective Subjective Patient was seen & assessed and interval progress reviewed with nursing and social work. Reports feeling tired due to nightmares last night. Feels these occur frequently at home too. No side effects from higher dose of [place]. Feels unsafe to discharge today due to ongoing self-harm urges. She'd like to work on a few more coping skills today. Agreed to utilize other coping skills by holding frozen fruit and discussed shower or yoga. She remains resistant to any-type of DBT based therapy. Reviewed some internal family systems approaches that she could try when the self-harm thoughts feel overwhelming. She doesn't want to make any changes to naltrexone dose. She'd like to try doxazosin in exchange from prazosin to see if this helps with nightmares. Also discussed clonidine could be a future consideration. She also consents to titration of sertraline for depression, anxiety and OCD. Previously she was on 200mg daily prior to switching to clomipramine in March. She found prn Valium helpful yesterday when she was self-harming, she prefers this to ativan as finds it more effective. Physical Exam Psychiatric Orientation: oriented x 3 Apperance: appropriately dressed and appropriately groomed Eye Contact: + fair eye contact (looks down frequently) Motor Behavior: steady gait and station and no abnormal motor movements Speech: + abnormal rate/rhythm/volume of speech (soft) Affect: + constricted affect Mood: + depressed mood and + anxious mood Thought Process: goal directed thought process Thought Content: reality based without delusions Suicidal Thoughts: denies suicidal plan and denies suicidal intent; + reports suicidal thoughts (passive chronic SI) Homicidal Thoughts: denies homicidal thoughts, denies homicidal plan and denies homicidal intent Hallucinations: no auditory hallucinations and no visual hallucinations Cognition: recent memory grossly intact, remote memory grossly intact, attention grossly intact and language grossly intact Insight: + fair insight Judgment: + limited judgement Vital Signs (Past 24 Hours) Last Vital Signs Temp 37.4 C 10/31/24 06:32 Pulse 71 10/31/24 06:32 Resp 18 10/31/24 06:32 BP 124/84 10/31/24 06:33 Pulse Ox 99 10/30/24 06:29 O2 Del Method Room Air 10/30/24 06:29 Results & Data ([facility]) Current Inpatient Medications Current Inpatient Medications: Current Inpatient Medications Acetaminophen (Acetaminophen 325 Mg Tab) 650 mg PO Q4H PRN PRN Reason: Headache or Minor Fever Stop: 11/27/24 21:25 Last Admin: 10/31/24 09:23 Dose: 650 mg Al Hydrox/Mg Hydrox/Simethicone (Aluminum/Magnesium Susp 30 Ml Udc) 30 ml PO Q4H PRN PRN Reason: GI Upset Stop: 11/27/24 21:25 Atogepant (Atogepant 30 Mg Tab) 30 mg PO Q24H [facility] Stop: 11/28/24 21:59 Last Admin: 10/30/24 21:27 Dose: 30 mg Bismuth Subsalicylate (Bismuth Subsalicylate 262 Mg Chew) 2 tab PO Q30M PRN PRN Reason: Loose Stool/Diarrhea Stop: 11/27/24 21:25 Buspirone HCl (Buspirone 15 Mg Tab) 30 mg PO BID [facility] Stop: 11/28/24 10:59 Last Admin: 10/31/24 08:48 Dose: 30 mg Diazepam (Diazepam 2 Mg Tablet) 2 mg PO BID PRN PRN Reason: panic attacks/agitation Stop: 11/30/24 11:54 Ferrous Sulfate (Ferrous Sulfate 325 Mg Tab) 325 mg PO MoWeFr@0900 [facility] Stop: 11/28/24 11:14 Last Admin: 10/29/24 11:46 Dose: 325 mg Fludrocortisone Acetate (Fludrocortisone Acetate 0.1 Mg Tab) 0.2 mg PO DAILY [facility] Stop: 11/28/24 10:59 Last Admin: 10/31/24 08:47 Dose: 0.2 mg Gabapentin (Gabapentin 600 Mg Tab) 600 mg PO BID [facility] Stop: 11/28/24 10:59 Last Admin: 10/31/24 08:47 Dose: 600 mg Hydroxyzine HCl (Hydroxyzine Hcl 25 Mg Tab) 50 mg PO HSZ PRN PRN Reason: Insomnia Stop: 11/27/24 21:25 Hydroxyzine HCl (Hydroxyzine Hcl 25 Mg Tab) 25 mg PO Q4H PRN PRN Reason: Anxiety Stop: 11/27/24 21:25 [place] Carbonate ([place] Carbonate 300 Mg Tab) 300 mg PO QAM [facility] Stop: 11/30/24 08:59 Last Admin: 10/31/24 08:48 Dose: 300 mg [place] Carbonate ([place] Carbonate 300 Mg Tab) 600 mg PO HS [facility] Stop: 11/29/24 21:59 Last Admin: 10/30/24 21:25 Dose: 600 mg Magnesium Hydroxide (Magnesium Hydroxide Susp 30 Ml Udc) 30 ml PO DAILY PRN PRN Reason: Constipation Stop: 11/27/24 21:25 Magnesium Oxide (Magnesium Oxide 400 Mg Tab) 400 mg PO HS [facility] Stop: 11/28/24 21:59 Last Admin: 10/30/24 21:25 Dose: 400 mg Meloxicam (Meloxicam 7.5 Mg Tab) 7.5 mg PO BID [facility] Stop: 11/28/24 20:59 Last Admin: 10/31/24 08:48 Dose: 7.5 mg Miscellaneous (Order Awaiting Action (Riboflavin (Vitamin B2) 400 Mg Tablet) 1 each N/A QS [facility] Stop: 11/28/24 15:59 Last Admin: 10/31/24 08:48 Dose: Not Given Naltrexone HCl (Naltrexone Hcl 50 Mg Tab) 50 mg PO DAILY [facility] Stop: 11/28/24 10:59 Last Admin: 10/31/24 08:47 Dose: 50 mg Ondansetron HCl (Ondansetron 4 Mg Od Tab) 4 mg PO Q8H PRN PRN Reason: Nausea Stop: 11/28/24 10:54 Prazosin HCl (Prazosin Hcl 1 Mg Cap) 2 mg PO HS [facility] Stop: 11/28/24 21:59 Last Admin: 10/30/24 21:26 Dose: 2 mg Sertraline HCl (Sertraline Hcl 50 Mg Tablet) 50 mg PO QAM [facility] Stop: 11/28/24 13:59 Last Admin: 10/31/24 08:47 Dose: 50 mg Sodium Chloride (Sodium Chloride 0.65% Na Soln 45 Ml ([place])) 1 - 2 sprays NA PRN PRN PRN Reason: Nasal Dryness/Congestion Stop: 11/27/24 21:25 Trazodone HCl (Trazodone Hcl 50 Mg Tab) 50 - 100 mg PO HS PRN PRN Reason: Sleep Stop: 11/28/24 10:54 Last Admin: 10/29/24 20:48 Dose: 50 mg Mental Health & Subst Abuse Tx Psychiatrist Name of Psychiatrist: Hanna Deluca (In person) Psychiatrist's Date Of Appointment With Psychiatric Provider: 11/19/24 Time of Appointment with Psychiatrist: 8:20AM Psychiatric Appointment Comment: [address] [facility] [address], [place] [address] Therapist Name of Therapist[place] Guerda [place]as [facility] [place] Therapist's Date of Therapist Appointment: 11/05/24 Time of Therapist Appointment: 2PM Therapy Appointment Comment: [address] [place] [address] [address], [place] [address] Family Resource Management Specialist Name of Family Resource Management Specialist: N/A Post Discharge Appointments Primary Care Physician Name Of Family Doctor/PCP: Michelle Lawrence Primary Care Provider Appointment Comment: [address] [place] [address], [place] [address] Neurologist Name of Neurologist: Bethany Gavin - Neurologist at [facility] Contact Information Discharge Discharge Address: [address] [place] [address] [place] [address]
[2024-10-31] MEDS: DOXAZosin MESYLATE TAB 2 MG TAB PO SCH (20:50)
[2024-11-01] MEDS: SERTRALINE HCL 100 MG TABLET PO SCH (08:33)
--- NOTE | 2024-11-01 08:44 | Discharge Summary ---
Date of Service November 01, 2024 History of Present Illness Per the patient she presented to the ED after endorsing suicidal ideations. During a scheduled appointment with her psychiatrist. "But I didnt have any intent," she stated. After endorsing SI, the patient was asked to sign a list of conditions in order to continue seeing her psychiatrist. The patient started having a panic attack with racing thoughts of, Why does everyone always give up on me. The patient feels her psychiatrist overreacted sending her to the emergency department. Upon evaluation patient presented as calm and cooperative with a affect and limited range, and soft, muffled and often unintelligible speech. Patient reported a long history of undisclosed anxiety beginning in middle school, along with depression, feelings of worthlessness on and off throughout [her] life," and chronic suicidal ideations experienced throughout middle school. She did not seek support until the age of 20 when her depressive and anxious symptoms hindered her academic performance. Patient reported a pattern of only disclosing distress during routine encounters noting that she has never sought unscheduled support wanted crisis. The patient reports experiencing worsening depression and anxiety over the past year after being let go from her job in August of 2023 and then subsequently losing her long-time therapist. HR sent an email saying I was too burdensome to employ, she stated. Prior to this, the patient believes her mental health was improving she was performing well and worked with, in therapy and responded well to medication. Following that stressor leading the patient experienced worsening depression associated with insomnia, poor appetite, isolated behavior, poor concentration, low energy, excessive guilt, worth prediabetes lessens, hopelessness (more prominent in the past year), and chronic suicidal ideations. Her anxiety has been associated with racing thoughts, restlessness, negative thought patterns and panic attacks (a couple times a weeksometimes its just out of nowhere lasting about 10-30 minutes). Regarding triggers she reported experiencing general anxiety throughout the day stating, I have a lot of anxiety with leaving my home. Patient reports chronic suicidal ideation stating, "the thoughts are always kind of there in the back of my head. She reports never having had a "set plan" but stated "I know ways to do it." Patient admits to history of developing intent noting that her last instance of suicidal intent occurred February 2024. The patient also reported PTSD symptoms regarding physical and emotional trauma, that include intrusive thoughts, nightmares, flashbacks, and avoiding being alone with men. Patient reported having no current/prior history of marin including insomnia with preserved energy, grandiosity, hyperactivity, impulsivity (hypersexuality, increased spending), and pressured speech. She also reported no history of psychosis denying current or prior auditory/visual hallucinations, ideas of reference and paranoia. Of note, patient reports that Zoloft was previously effective in managing her depression but recently discontinued and started on clomipramine. Patient does not feel clomipramine has been effective. Patient also reports naltrexone to be effective in subduing urges to self-harm. Physical Exam Vital Signs (Past 24 Hours) Last Vital Signs Temp 37.4 C 11/01/24 08:26 Pulse 86 11/01/24 08:26 Resp 18 11/01/24 08:26 BP 115/76 11/01/24 08:26 Pulse Ox 99 11/01/24 08:26 O2 Del Method Room Air 10/30/24 06:29 Principal Diagnosis Major depressive disorder, recurrent Psychiatric Data See daily stay summary. In short, patient was engaged with the social/therapeutic milieu of the unit, safety was maintained and the patient was cooperative with care. Medication changes included increasing Bret Harte for depression, switching from clomipramine to sertraline for depression, switching from prazosin to doxazosin for night terrors and Valium 2mg daily prn for panic attacks and they tolerated this well. A support session was held and safety plan was completed prior to discharge. Discussed recommendation for new Bret Harte level, given increased dose, in ~7 days . She feels comfortable coordinating this with her outpatient psychiatric provider. They participated in safety planning and in discussions about ways to seek support and recognizing warning signs and utilizing coping skills. Reviewed ways to have their safety plan and contacts easily available should thoughts of SI re-emerge in the future. Reviewed importance of seeking emergency care should SI intensify, worsen or should they feel unsafe in the future which they agree to do. On the day of discharge they stated their mood was "a little better" and remained future-oriented including spending time with her dogs, relaxing and engaging in aftercare appointments for psychiatry and therapy. Reviewed and strongly recommended virtual IOP with focus on DBT skills or consideration of specialized functional neurologic disorders clinic which she declined for now but agreed to consider if symptoms do not improve or worsen in the future. She was discharged just prior to the expiration of her 72 hour notice. She did not meet 302 criteria given improvement in mood and denial of SI (see further risk assessment above). Day of Discharge Assessment Today the patient voices readiness for discharge. They note improvement in mood and anxiety. They deny thoughts of harm to self or others. Thoughts are organized and they are clinically improved from admission. There is no evidence of psychosis. They improved in the hospital with support and medication adjustments. They agree to take medications as prescribed and keep follow-up appointments. At the time of the discharge they are deemed to be stable and appropriate for outpatient level of care. They are not deemed to be at imminent risk of harm to self or others. They are aware of emergency and crisis services. Knows to call 911 or go to nearest emergency care center if in a crisis which cannot be handled as an outpatient. Suicide risk assessment: Acute risk is low given improvement in mood and denial of SI, lack of access to lethal means, improvement in sleep, hopefulness. Chronic risk is moderate to high given some non-modifiable risk factors: psychiatric co-morbid diagnoses, periods of impulsivity, hx self-harm, emotional reactivity, cluster B traits, childhood trauma, but also with protective factors including employed, sense of responsibility to family and social supports, outpatient care in place, self- observation. Counseled on ways to reduce acute and chronic risk including engaging with outpatient providers, using safety plan if needed, utilizing supports, taking medication, and using coping skills. Modifiable risk factors of SI and depression were addressed during hospitalization through development of new coping skills, support meeting, safety planning, and medication adjustments. Discharge physical exam: See admission H&P, MSE per above and day of discharge summary. Overall, I spent a total of 35 minutes on this case including meeting with the patient, reviewing the chart, nursing report, multidisciplinary team meeting, discharge orders, anticipatory planning, safety planning, risk assessment and documentation. Transition of Care Transition Of Care Record: was reviewed with the patient Advance Directives Advance Directives Information Provided: Yes Advance Directives: No Mental Health Advance Directive: No Advance Directives on File: No Living Will: No Power of Wrapper Opener: No Advance Directives Reason:: Declines as Mental Health Visit. Suicide Risk Level Suicide Risk Level Comments: see assessment above Risk Factors Assessment Male: No : Yes Do You Have Access To A Gun?: No (mother owns firearms but they are locked, patient does not have the bland) Health Problems: Yes Mental Health Diagnoses: Yes Substance Use Disorders: No Previous Attempt: No Family History of Suicide: No Previous Psychiatric Hospitalization: No Hopelessness: No Protective Factors Assessment Employed: Yes Stable Relationships: Yes Supportive Family: Yes Tobacco Cessation at Discharge Tobacco Cessation Medication Prescribed at Discharge: Not Applicable/Non-Smoker Discharge Data Lab Results 10/28/24 10/28/24 10/28/24 12:07 13:40 Unknown WBC 16.29 H RBC 4.36 Hgb 12.7 Hct 39.0 MCV 89.4 MCH 29.1 MCHC 32.6 RDW Std Deviation 43.3 RDW Coeff of Dahlia 13.2 Plt Count 415 H MPV 8.3 L Immature Gran % (Auto) 0.4 Neut % (Auto) 87.7 Lymph % (Auto) 6.5 Lamb % (Auto) 4.3 Eos % (Auto) 0.5 Baso % (Auto) 0.6 Neut # (Auto) 14.30 H Lymph # (Auto) 1.06 L Lamb # (Auto) 0.70 H Eos # (Auto) 0.08 Baso # (Auto) 0.09 Immature Gran # (Auto) 0.06 Sodium 135 L Potassium 4.2 Chloride 105 Carbon Dioxide 26 Anion Gap 4 BUN 10 Creatinine 0.67 Est Cr Clr Drug Dosing Not Reportable eGFR 121.26 BUN/Creatinine Ratio 14.9 Glucose 105 H Calcium 9.4 Total Bilirubin 0.5 AST 17 ALT 16 Alkaline Phosphatase 56 Total Protein 7.7 Albumin 4.2 Globulin 3.5 Albumin/Globulin Ratio 1.2 TSH 3.345 HCG, Qual Negative Urine Color Yellow Urine Appearance Clear Urine pH 7.0 Ur Specific [place] 1.012 Urine Protein Negative Urine Glucose (UA) Negative Urine Ketones Trace H Urine Blood Negative Urine Nitrite Negative Urine Bilirubin Negative Urine Urobilinogen Negative Ur Leukocyte Esterase Trace H Urine WBC (Auto) 6-10 H Urine RBC (Auto) 3-5 H U Hyaline Cast (Auto) 0-2 U Epithel Cells (Auto) 6-10 H Urine Bacteria (Auto) None Seen Urine Comment Salicylates < 3.0 L Urine Opiates Screen Neg Ur Methadone, Qual Neg Urine Fentanyl Screen Neg Acetaminophen < 3 L Urine Barbiturates Neg Ur Phencyclidine (PCP) Neg U Amphetamin/Meth Scrn Pos H MDMA (Ecstasy) Screen Neg U Benzodiazepines Scrn Neg Bret Harte 0.2 L Ur Cocaine Metabolite Neg U Marijuana (THC) Screen Neg Ethyl Alcohol mg/dL < 10.0 SARS-CoV-2, RNA, NAAT NEGATIVE 10/30/24 07:57 WBC RBC Hgb Hct MCV MCH MCHC RDW Std Deviation RDW Coeff of Dahlia Plt Count MPV Immature Gran % (Auto) Neut % (Auto) Lymph % (Auto) Lamb % (Auto) Eos % (Auto) Baso % (Auto) Neut # (Auto) Lymph # (Auto) Lamb # (Auto) Eos # (Auto) Baso # (Auto) Immature Gran # (Auto) Sodium Potassium Chloride Carbon Dioxide Anion Gap BUN Creatinine Est Cr Clr Drug Dosing eGFR BUN/Creatinine Ratio Glucose Calcium Total Bilirubin AST ALT Alkaline Phosphatase Total Protein Albumin Globulin Albumin/Globulin Ratio TSH HCG, Qual Urine Color Urine Appearance Urine pH Ur Specific [place] Urine Protein Urine Glucose (UA) Urine Ketones Urine Blood Urine Nitrite Urine Bilirubin Urine Urobilinogen Ur Leukocyte Esterase Urine WBC (Auto) Urine RBC (Auto) U Hyaline Cast (Auto) U Epithel Cells (Auto) Urine Bacteria (Auto) Urine Comment Salicylates Urine Opiates Screen Ur Methadone, Qual Urine Fentanyl Screen Acetaminophen Urine Barbiturates Ur Phencyclidine (PCP) U Amphetamin/Meth Scrn MDMA (Ecstasy) Screen U Benzodiazepines Scrn Bret Harte 0.4 L Ur Cocaine Metabolite U Marijuana (THC) Screen Ethyl Alcohol mg/dL SARS-CoV-2, RNA, NAAT Hospital Course (1) Major depressive disorder, recurrent episode with mixed features: (2) Suicidal ideation: (3) Intentional self-harm: (4) Social anxiety disorder: (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 The patient will participate in group, recreational, and milieu therapies and will be offered additional individual and family sessions as clinically appropriate. Discontinue Clomipramine Restart Zoloft at 50 mg PO QAM Continue remaining home medications (excluding stimulant) Mental Health & Subst Abuse Tx Psychiatrist Name of Psychiatrist: Hanna Deluca (In person) Psychiatrist's Date Of Appointment With Psychiatric Provider: 11/19/24 Time of Appointment with Psychiatrist: 8:20AM Psychiatric Appointment Comment: [address], [place] [address] Psychiatrist Release of Information: Obtained, Reviewed and Signed Therapist Name of Therapist: [place] [facility] [place] The[place]ist's Date of Therapist Appointment: 11/05/24 Time of Therapist Appointment: 2PM Therapy Appointment Comment: [address], [place] [address] Therapist Release of Information: Obtained, Reviewed and Signed Oil Refinery Process Technician Name of Oil Refinery Process Technician: N/A Post Discharge Appointments Primary Care Physician Name Of Family Doctor/PCP: Michelle Lawrence Primary Care Provider Appointment Comment: [address] [place], [place] [address] Primary Care Release of Information: Obtained, Reviewed and Signed Home Health Services Home Health Services:: None Neurologist Name of Neurologist: Bethany Gavin - Neurologist at [facility] Smoking Cessation Counseling Tobacco Cessation Medication Prescribed at Discharge: Not Applicable/Non-Smoker Other #1: Name of Aftercare Appointment: [facility] [place] (in person) Phone Number of Aftercare Appointment: Aftercare Appointment Comment: Pt reported unable to resume upon dc due to work schedule #2: Name of Aftercare Appointment: [facility] (virtual) Phone Number of Aftercare Appointment: [phone] Aftercare Appointment Comment: Contact to self refer if interested #3: Name of Aftercare Appointment: Functional Neurological Disorder Program - [facility] Phone Number of Aftercare Appointment: [address] [place] [address] Aftercare Appointment Comment: Optional - Call [phone] or [phone] to [facility] neuropsych consultation Contact Information Discharge Discharge Address: [address] [place] [address] [place] [address] Discharge Plan Discharge Items Patient Disposition: Home - Self-Care Reason For Visit: MAJOR DEPRESSIVE DISORDER Discharge Diagnosis: Major Depressive Disorder, recurrent Condition on Discharge: Good Activity: Resume your previous activity Non-emergency contact: Primary Care Provider, Psychiatrist and Therapist Call non-emergency contact if: you have any medication questions and your symptoms worsen Follow-up/Referrals: Michelle Tan PA-C [Primary Care Provider] - Diet: Regular Addtl Attending Provider Instructions: Optional mobile apps we discussed: -Suicide safety plan -Virtual Hope Box -Headspace $ SPECIAL CARE INSTRUCTIONS: 1. Follow through with your scheduled aftercare appointments. If unable to keep an appointment, please call to reschedule. 2. Take your medication only as prescribed. Medication should not be changed or stopped without the approval of your doctor. In the event of worsening symptoms or concerns about side effects, contact your doctor immediately. 3. Utilize new healthy coping skills, anger management skills, and stress management skills learned during your hospitalization. Journal feelings and process them with a support person. Identify stressors or situations that may result in relapse, deterioration or inappropriate behaviors and develop a plan to deal with those issues. 4. If your coping skills are ineffective and you are in crisis, contact your outpatient providers for direction. If unable to reach your providers, please call the [facility] CRISIS LINE AT , go to the [facility] walk-in center at [address], [address], [place], or go to the closest Emergency Room. 5. Avoid alcohol and un-prescribed drugs. 6. You have been provided with the Mental Health Advance Directives Pamphlet for your review. 7. Your condition is stable for discharge to outpatient level of care, but recovery is an ongoing process. Ifthoughts to harm yourself or others return, follow the safety plan developed during your stay. Planning for a safe return home includes securing weapons. Our treatment team recommends weaponsbe removed from the home until your outpatient provider reassesses your progress. In rare cases where the items themselvescannot be removed, guns and ammunitionshould be secured separatelyand keys stored by a reliable personoutside of the home. If you were admitted on an involuntary commitment, the police or other legal authorities may be involved in this process. AFTERCARE APPOINTMENTS: * Please call your insurance company prior to your scheduled appointment to confirm your aftercare providers are covered. Take your insurance information to your appointments. WHO TO CALL AND WHEN: Medical Emergencies: For questions or emergencies related to your hospital stay, please contact the Inpatient Behavioral Health Unit at [phone]. A spark plug assembler is on-call 23/09 for the Behavioral Health Unit for emergencies At any time you feel your situation is an emergency, you may also call 911 immediately. [place] Crisis Hotline: 988 Pending Studies at Discharge: No Stand-Alone Forms: [facility] Medications and DC Order Prescriptions: New sertraline 100 mg Tablet 100 mg PO QAM 30 Days Qty: 30 0RF diazepam 2 mg Tablet 2 mg PO DAILY PRN (Reason: panic attacks) 30 Days Qty: 10 0RF lithium carbonate 300 mg Tablet 300 mg PO QAM 30 Days Qty: 30 0RF doxazosin 2 mg Tablet 2 mg PO HS 30 Days Qty: 30 0RF lithium carbonate 600 mg capsule 600 mg PO HS 30 Days Qty: 30 0RF Continued Florinef 0.2 mg tablet 0.2 mg PO DAILY meloxicam 7.5 mg tablet 7.5 mg PO BID gabapentin 600 mg tablet 600 mg PO BID trazodone 50 mg tablet 50 - 100 mg PO HS PRN (Reason: Sleep) naltrexone 50 mg tablet 50 mg PO DAILY dextroamphetamine-amphetamine 20 mg capsule,extended release 24hr 20 mg PO QAM buspirone 30 mg tablet 30 mg PO BID ferrous sulfate 325 mg (65 mg iron) Tablet 325 mg PO .MON,WED,FRI ondansetron 4 mg tablet,disintegrating 4 mg PO Q8H PRN (Reason: Nausea) riboflavin (vitamin B2) 400 mg Tablet 400 mg PO DAILY Nurtec ODT 75 mg tablet,disintegrating 75 mg PO UD PRN (Reason: Headache) Rx Instructions: one tab at beginning of a headache, can take up to two days a week Qulipta 30 mg tablet 30 mg PO HS magnesium 400 mg PO HS Discontinued diazepam 2 mg tablet See Rx Instructions .ROUTE .COMPLEX PRN (Reason: Focus) Rx Instructions: 2 mg orally as needed ;Can be taken up to twice a day. clomipramine 75 mg capsule 200 mg PO HS Rx Instructions: take 50mg capsule with two 75mg capsule to equal 200 lithium carbonate 300 mg capsule 300 mg PO BID Discharge Orders: Discharge Order (Routine); Ordered 11/01/24 Ordered By: Florencia Lazcano Admission Data Admit Date/Time: 10/28/24 18:47 Attending Provider: Florencia Lazcano Admit Provider: Godfrey Herrera Primary Care Provider: Michelle Tan Other Providers: Godfrey Herrera Other Interventions: Discharge Summary Assessment (RN) Last Done: 11/01/24 08:26 PSY Interdisciplinary Discharge Planning Last Done: 11/01/24 08:26 Coding Level of Care Code 52587 D/C day mgmt > 30 min Diagnoses Major depressive disorder, recurrent episode with mixed features F33.9 Suicidal ideation R45.851 Intentional self-harm X83.8XXA Social anxiety disorder F40.10 Functional neurological symptom disorder with attacks or seizures F44.5
== END 2024-11-01 09:40 | disposition home or self-care (01) | DRG 885 ==
LOC: ED 11:34 → SUATTDRO 18:47 → 3S 18:47